=== PATIENT | female | born 1975 | race Two or more races ===

== ENCOUNTER 2024-07-20 11:31 | Inpatient (IN) | payer OTHER ==
[~2024-07-20] VITALS: Ht 180.3 cm; Wt 57.6 kg
[2024-07-20] MEDS ORDERED: KETOROLAC TROMETHAMINE 60 MG VIAL IM ONE ×2 (12:29→12:30)
[2024-07-20 12:30] LABS: HEMATOCRIT 33.5 % (36.0-45.00); HEMOGLOBIN 11.6 g/dL (12.0-15.00); MEAN CELL VOLUME 93.6 fL (80.00-100.00); MEAN CORPUSCULAR HEMOGLOBIN 32.4 pg (27.00-32.0); MEAN CORPUSCULAR HGB CONC 34.6 g/dl (32.0-36.0); PLATELET COUNT 221 K/uL (150-450); RED BLOOD COUNT 3.57 M/uL (4.00-6.00); RED CELL DISTRIBUTION WIDTH 13.9 % (11.5-14.5)
[2024-07-20 13:04] LABS: ALBUMIN 3.2 gm/dL (3.4-5.0); BILIRUBIN TOTAL 0.89 mg/dL (0.3-1.2); CALCIUM 8.9 mg/dL (8.5-10.1); CREATININE SERUM 0.94 mg/dL (0.55-1.02); GFR 63.03; GLOBULINA 4.1 G/DL (2.4-3.5); POTASSIUM 3.48 mEq/L (3.5-5.1); TOTAL PROTEIN 7.3 gm/dL (6.4-8.2)
[2024-07-20 13:06] LABS: INR 1.12; PROTHROMBIN TIME 12.1 SECONDS (9.0-11.5)
[2024-07-20] MEDS ORDERED: CEFTRIAXONE SODIUM 2,000 MG VIAL IV ONE (15:45)
[2024-07-20] MEDS ORDERED: 0.9 % SODIUM CHLORIDE 1,000 ML IV ONE (15:45)
[2024-07-20] MEDS ORDERED: CEFTRIAXONE SODIUM 2,000 MG VIAL ONE (17:11)
[2024-07-20 17:31] LABS: PH,URINE 6.5 (5.0-8.0); URINE APPEARANCE Cloudy; URINE BILIRRUBIN Negative (NEGATIVE); URINE BLOOD Moderate; URINE COLOR Yellow; URINE GLUCOSE Negative (NEGATIVE); URINE KETONE Negative (NEGATIVE); URINE LEUKOCYTE Small; URINE NITRATE Negative; URINE PROTEIN Negative (NEGATIVE); URINE UROBILINOGEN 0.2 E.U./dl
[2024-07-20 17:34] LABS: URINE BACTERIA 1515.7 uL (0.0-1933); URINE EPITHELIAL CELLS 117.7 uL (0.0-38.8); URINE WBC 77.8 uL (0.0-23.2)
[2024-07-20] MEDS ORDERED: 0.9 % SODIUM CHLORIDE 1,000 ML IV SCH (17:45)
[2024-07-20] MEDS ORDERED: ONDANSETRON HCL 4 MG in 0.9 % SODIUM CHLORIDE 50 ML IV PRN (17:45)
[2024-07-20] MEDS ORDERED: FAMOTIDINE/PF 20 MG in 0.9 % SODIUM CHLORIDE 100 ML IV SCH (17:56)
[2024-07-20] MEDS ORDERED: PIPERACILLIN/TAZOBACTAM SODIUM 3.375 GM in 0.9 % SODIUM CHLORIDE 100 ML IV SCH (18:00)
[2024-07-20] MEDS ORDERED: MORPHINE SULFATE 2 MG/ML CARTRIDGE IV PRN (18:00)
[2024-07-20] MEDS ORDERED: POTASSIUM CHLORIDE/NACL 0.9% 1,000 ML IV ONE (18:00)
[2024-07-20] MEDS ORDERED: FAMOTIDINE/PF 20 MG/2 ML VIAL ONE (18:37)
[2024-07-20] MEDS ORDERED: PIPERACILLIN/TAZOBACTAM SODIUM 3.375 GM VIAL IV ONE (18:37)
[2024-07-20 19:46] VITALS: BP 109/65; O2SAT 100
[2024-07-20 20:12] LABS: URINE CAST 0.15 uL (0.0-1.40)
[2024-07-20 20:24] VITALS: BP 97/63
[2024-07-21 01:24] VITALS: BP 102/64
[2024-07-21 11:38] VITALS: BP 112/73
[2024-07-21 12:33] LABS: HEMATOCRIT 30.6 % (36.0-45.00); HEMOGLOBIN 10.6 g/dL (12.0-15.00); MEAN CELL VOLUME 94.6 fL (80.00-100.00); MEAN CORPUSCULAR HEMOGLOBIN 32.7 pg (27.00-32.0); MEAN CORPUSCULAR HGB CONC 34.6 g/dl (32.0-36.0); PLATELET COUNT 212 K/uL (150-450); RED BLOOD COUNT 3.24 M/uL (4.00-6.00); RED CELL DISTRIBUTION WIDTH 14.1 % (11.5-14.5)
[2024-07-21 12:57] LABS: ALBUMIN 3.1 gm/dL (3.4-5.0); BILIRUBIN TOTAL 0.55 mg/dL (0.3-1.2); CALCIUM 8.6 mg/dL (8.5-10.1); CREATININE SERUM 0.87 mg/dL (0.55-1.02); GFR 68.92; GLOBULINA 3.8 G/DL (2.4-3.5); POTASSIUM 4.21 mEq/L (3.5-5.1); TOTAL PROTEIN 6.9 gm/dL (6.4-8.2)
[2024-07-21] MEDS ORDERED: LACTOBACILLUS ACIDOPHILUS 1 CAP CAP PO SCH (13:00)
[2024-07-21] MEDS ORDERED: KETOROLAC TROMETHAMINE 30 MG VIAL IV PRN (15:15)
[2024-07-21 15:58] VITALS: BP 131/75
[2024-07-22 01:00] VITALS: BP 105/70
[2024-07-22] MEDS ORDERED: METHYLPREDNISOLONE SOD SUCC 40 MG VIAL IV NR (08:00)
[2024-07-22] MEDS ORDERED: DIPHENHYDRAMINE HCL 25 MG CAPSULE PO NR (08:00)
[2024-07-22 09:10] VITALS: BP 124/82
[2024-07-22] MEDS ORDERED: DIATRIZOATE MEGLUMINE, SODIUM 30 ML BOTTLE PO NR (11:00)
[2024-07-22] MEDS ORDERED: PIPERACILLIN/TAZOBACTAM SODIUM 3.375 GM VIAL IV ONE ×2 (11:59→18:33)
[2024-07-22 17:42] VITALS: BP 134/81
[2024-07-23] VITALS: BP 130/81
[2024-07-23 07:06] LABS: HEMATOCRIT 26.5 % (36.0-45.00); HEMOGLOBIN 9.3 g/dL (12.0-15.00); MEAN CELL VOLUME 94.1 fL (80.00-100.00); MEAN CORPUSCULAR HEMOGLOBIN 32.9 pg (27.00-32.0); MEAN CORPUSCULAR HGB CONC 34.9 g/dl (32.0-36.0); PLATELET COUNT 212 K/uL (150-450); RED BLOOD COUNT 2.82 M/uL (4.00-6.00); RED CELL DISTRIBUTION WIDTH 13.6 % (11.5-14.5)
[2024-07-23] MEDS ORDERED: FAMOTIDINE/PF 20 MG/2 ML VIAL ONE (07:55)
[2024-07-23 08:00] VITALS: BP 137/84
== END 2024-07-23 12:53 | disposition home or self-care (01) | DRG 392 ==
LOC: ER 11:32 → OB/GYN 18:34
PROVIDERS: General Practice; Internal Medicine Infectious Disease; ADMIT Internal Medicine; ATTEND Internal Medicine
PROC: BW4GZZZ Ultrasonography of Pelvic Region (ICD-10-PCS; principal; 2024-07-20)
PROC: BW21YZZ Computerized Tomography (CT Scan) of Abdomen and Pelvis using Other Contrast (ICD-10-PCS; 2024-07-20)
PROC: BW21YZZ Computerized Tomography (CT Scan) of Abdomen and Pelvis using Other Contrast (ICD-10-PCS; 2024-07-22)
DX: K52.9 Noninfective gastroenteritis and colitis, unspecified (principal); R10.2 Pelvic and perineal pain; D72.829 Elevated white blood cell count, unspecified